=== PATIENT | male | born 1940 | race Caucasian/White ===

== ENCOUNTER 2019-08-26 07:30 | Day surgery (SDC) | payer MEDICARE, BC ==
[2019-08-26] VITALS (10 sets, daily range): BP systolic 116–130; BP diastolic 58–67
[~2019-08-26] VITALS: Ht 170.2 cm; Wt 73.8 kg
[~2019-08-26 07:30] MED LIST: ASPI81TA30 PO; EZET10TA6 PO; FENO145T38 PO; METO50TA17 PO; OMEP20CA4 PO; VITC500T PO
[2019-08-26] MEDS ORDERED: normal saline 1,000 ML IV SCH (07:55)
[2019-08-26] MEDS ORDERED: diphenhydrAMINE 25mg capsule PO PRN (07:55)
[2019-08-26 08:17] LABS: BASOPHILS % (AUTO) 0.5 % (0-1); EOSINOPHILS # (AUTO) 0.3 X10'3 (0-0.9); EOSINOPHILS % (AUTO) 4.2 % (0-6); HEMATOCRIT 39.7 % (42.0-52.0); LYMPHOCYTES # (AUTO) 1.2 X10'3 (1.1-4.8); LYMPHOCYTES % (AUTO) 16.3 % (21-51); MEAN CORPUSCULAR HEMOGLOBIN 29.5 PG (27.0-31.0); MEAN CORPUSCULAR HGB CONC 32.8 g/dL (33.0-36.5); MEAN CORPUSCULAR VOLUME 89.8 FL (78-98); MEAN PLATELET VOLUME 8.8 FL (7.4-10.4); MONOCYTES # (AUTO) 0.7 X10'3 (0-0.9); NEUTROPHILS # (AUTO) 5.1 X10'3 (1.8-7.7); PLATELET COUNT 324 X10'3 (140-440); RED BLOOD COUNT 4.43 X10'6 (4.70-6.10); RED CELL DISTRIBUTION WIDTH 14.8 % (11.5-14.5); WHITE BLOOD COUNT 7.3 X10'3 (4.5-11.0)
[2019-08-26 08:29] LABS: ALBUMIN 3.7 G/DL (3.4-5.0); ANION GAP 8 (8-16); BLOOD UREA NITROGEN 31 MG/DL (7-18); BUN/CREATININE RATIO 22.8 (5.4-32.0); CALCIUM 9.2 MG/DL (8.5-10.1); CHLORIDE 109 MMOL/L (99-107); CREATININE 1.36 MG/DL (0.60-1.10); GLUCOSE 90 MG/DL (70-104); MAGNESIUM 1.8 MG/DL (1.5-2.4); POTASSIUM 3.9 MMOL/L (3.5-5.1); SODIUM 143 MMOL/L (135-145); TOTAL CARBON DIOXIDE 26.3 MMOL/L (24-32); eGFR 50 ML/MIN
[2019-08-26] MEDS ORDERED: METO-467 PO (09:07)
[2019-08-26] MEDS ORDERED: LIDOcaine 1% (10mg/ml)w/preservative injection 20ml MDV ONE (09:08)
[2019-08-26] MEDS ORDERED: heparin 1,000unit/ml 10ml vial 10 ML ONE (09:08)
[2019-08-26] MEDS ORDERED: midazolam 2 mg/2 ml injection ONE ×2 (09:08→09:30)
[2019-08-26] MEDS ORDERED: fentaNYL/PF 50MCG/1 ML 2ML syringe ONE (09:08)
[2019-08-26] MEDS ORDERED: iohexol 350 MG/ML 50ML vial IV ONE (09:09)
[2019-08-26] MEDS ORDERED: iohexol 350MG/ML 100ml bottle IV ONE (09:09)
[2019-08-26] MEDS ORDERED: AMLO2.5T2 PO (09:17)
[2019-08-26] MEDS ORDERED: UBID50TA3 PO (09:17)
[2019-08-26] MEDS ORDERED: ATOR20TA PO (09:17)
[2019-08-26] MEDS ORDERED: EYE INJECTIONS EACHEYE (09:17)
[2019-08-26] MEDS ORDERED: MULT-1085 PO (09:17)
[2019-08-26] MEDS ORDERED: GLUC-131 PO (09:17)
[2019-08-26] MEDS ORDERED: OMEP-50 PO (09:17)
[2019-08-26] MEDS ORDERED: OMEG1CAP46 PO (09:17)
[2019-08-26] MEDS ORDERED: HYDROcodone/acetaminophen 10/325mg tab PO PRN (10:40)
[2019-08-26] MEDS ORDERED: OXAZEpam 15mg capsule PO PRN (10:40)
[2019-08-26] MEDS ORDERED: proCHLORperazine 10 MG/2 ml inj IV PRN (10:40)
[2019-08-26] MEDS ORDERED: HYDROcodone/acetaminophen 5mg/325mg tablet PO PRN (10:40)
[2019-08-26] MEDS ORDERED: acetaminophen 325mg tablet PO PRN (10:40)
[2019-08-26] MEDS ORDERED: ondansetron/PF 4mg/2ml inj IV PRN (10:40)
== END 2019-08-26 13:30 | disposition home or self-care (01) ==
LOC: MED 3N 07:30 → U 07:30
PROVIDERS: ATTEND Internal Medicine Cardiovascular Disease
DX: I25.10 Atherosclerotic heart disease of native coronary artery without angina pectoris (principal); I35.0 Nonrheumatic aortic (valve) stenosis; I27.20 Pulmonary hypertension, unspecified; Z87.891 Personal history of nicotine dependence
CPT/HCPCS: 36415; 80048; 83735; 85025; 85610; 93005; 93460; 99152; 99153; C1760; C1769; C1894; J1644; J2001; J2250; J3010; J7030; Q0163; Q9967; A4620; A6258

== ENCOUNTER 2020-08-27 09:23 | Day surgery (SDC) | payer MEDICARE, BC ==
[2020-08-27] VITALS (9 sets, daily range): BP systolic 144–165; BP diastolic 44–93
[~2020-08-27] VITALS: Ht 170.2 cm; Wt 78.4 kg
[~2020-08-27 09:23] MED LIST changes: +AMLO2.5T2 PO; +ATOR20TA PO; +EYE INJECTIONS EACHEYE; +GLUC-131 PO; +METO-467 PO; -METO50TA17 PO; +MULT-1085 PO; +OMEG1CAP46 PO; +OMEP-50 PO; -OMEP20CA4 PO; +UBID50TA3 PO
[2020-08-27] MEDS ORDERED: normal saline 1,000 ML IV SCH (09:50)
[2020-08-27] MEDS ORDERED: diphenhydrAMINE 25mg capsule PO PRN (09:50)
[2020-08-27 10:19] LABS: BASOPHILS % (AUTO) 0.3 % (0-1); EOSINOPHILS # (AUTO) 0.2 X10'3 (0-0.9); HEMATOCRIT 42.6 % (42.0-52.0); HEMOGLOBIN 14.2 g/dl (14.0-17.9); LYMPHOCYTES # (AUTO) 1.5 X10'3 (1.1-4.8); MEAN CORPUSCULAR HEMOGLOBIN 29.9 PG (27.0-31.0); MEAN CORPUSCULAR HGB CONC 33.4 g/dL (33.0-36.5); MEAN CORPUSCULAR VOLUME 89.4 FL (78-98); MEAN PLATELET VOLUME 8.6 FL (7.4-10.4); MONOCYTES # (AUTO) 0.7 X10'3 (0-0.9); MONOCYTES % (AUTO) 9.8 % (2-12); NEUTROPHILS # (AUTO) 4.6 X10'3 (1.8-7.7); NEUTROPHILS % (AUTO) 65.9 % (42-75); PLATELET COUNT 384 X10'3 (140-440); RED BLOOD COUNT 4.77 X10'6 (4.70-6.10); WHITE BLOOD COUNT 6.9 X10'3 (4.5-11.0)
[2020-08-27 10:27] LABS: ALBUMIN 3.6 G/DL (3.4-5.0); ANION GAP 13 (8-16); BLOOD UREA NITROGEN 24 MG/DL (7-18); CALCIUM 9.4 MG/DL (8.5-10.1); CHLORIDE 108 MMOL/L (99-107); CREATININE 1.33 MG/DL (0.60-1.10); GLUCOSE 89 MG/DL (70-104); MAGNESIUM 1.9 MG/DL (1.5-2.4); POTASSIUM 3.9 MMOL/L (3.5-5.1); SODIUM 146 MMOL/L (135-145); TOTAL CARBON DIOXIDE 25.4 MMOL/L (24-32); eGFR 52 ML/MIN
[2020-08-27] MEDS ORDERED: NITR0.4T51 SL (10:46)
[2020-08-27] MEDS ORDERED: APIX2.5T PO (10:46)
[2020-08-27] MEDS ORDERED: ZINC50TA67 PO (10:46)
[2020-08-27] MEDS ORDERED: ACET-890 PO (10:46)
[2020-08-27] MEDS ORDERED: midazolam 1 mg/ML 2ml injection ONE (10:52)
[2020-08-27] MEDS ORDERED: fentaNYL/PF 50MCG/1 ML 2ML syringe ONE (10:52)
[2020-08-27] MEDS ORDERED: heparin 1,000unit/ml 10ml vial 10 ML ONE (10:53)
[2020-08-27] MEDS ORDERED: LIDOcaine 1% (10mg/ml)w/preservative injection 20ml MDV ONE (10:53)
[2020-08-27] MEDS ORDERED: iohexol 350 MG/ML 50ML vial IV ONE (10:53)
[2020-08-27] MEDS ORDERED: iohexol 350MG/ML 100ml bottle IV ONE ×2 (10:53→12:24)
[2020-08-27] MEDS ORDERED: OXAZEpam 15mg capsule PO PRN (13:20)
[2020-08-27] MEDS ORDERED: ondansetron/PF 4mg/2ml inj IV PRN (13:20)
[2020-08-27] MEDS ORDERED: HYDROcodone/acetaminophen 10/325mg tab PO PRN (13:20)
[2020-08-27] MEDS ORDERED: proCHLORperazine 10 MG/2 ml inj IV PRN (13:20)
[2020-08-27] MEDS ORDERED: HYDROcodone/acetaminophen 5mg/325mg tablet PO PRN (13:20)
== END 2020-08-27 16:50 | disposition home or self-care (01) ==
LOC: SSTAY O 09:23
PROVIDERS: ATTEND Internal Medicine Cardiovascular Disease
DX: R94.39 Abnormal result of other cardiovascular function study (principal); I25.119 Atherosclerotic heart disease of native coronary artery with unspecified angina pectoris; I10 Essential (primary) hypertension; D64.9 Anemia, unspecified; I48.92 Unspecified atrial flutter; E78.5 Hyperlipidemia, unspecified; I25.2 Old myocardial infarction; K21.9 Gastro-esophageal reflux disease without esophagitis; Z86.73 Personal history of transient ischemic attack (TIA), and cerebral infarction without residual deficits; Z87.01 Personal history of pneumonia (recurrent); Z96.651 Presence of right artificial knee joint; Z96.642 Presence of left artificial hip joint; Z98.41 Cataract extraction status, right eye; Z98.890 Other specified postprocedural states; Z79.82 Long term (current) use of aspirin; Z79.899 Other long term (current) drug therapy; Z82.3 Family history of stroke
CPT/HCPCS: 36415; 80048; 83735; 85025; 85610; 93005; 93458; 99152; 99153; C1751; C1760; C1894; J1644; J2001; J2250; J3010; J7030; Q0163; Q9967; A4620; A6258

== ENCOUNTER 2020-09-03 08:34 | Day surgery (SDC) | payer MEDICARE, BC ==
[2020-09-03] VITALS (8 sets, daily range): BP systolic 130–156; BP diastolic 68–78
[~2020-09-03] VITALS: Ht 170.2 cm; Wt 78.1 kg
[~2020-09-03 08:34] MED LIST changes: +ACET-890 PO; +APIX2.5T PO; -ASPI81TA30 PO; -GLUC-131 PO; +NITR0.4T51 SL; +ZINC50TA67 PO
[2020-09-03] MEDS ORDERED: diphenhydrAMINE 25mg capsule PO PRN (09:05)
[2020-09-03] MEDS ORDERED: NARA2.5T2 (09:19)
[2020-09-03 09:33] LABS: BASOPHILS % (AUTO) 0.3 % (0-1); EOSINOPHILS # (AUTO) 0.2 X10'3 (0-0.9); EOSINOPHILS % (AUTO) 3.5 % (0-6); HEMATOCRIT 42.3 % (42.0-52.0); HEMOGLOBIN 14.1 g/dl (14.0-17.9); LYMPHOCYTES # (AUTO) 1.5 X10'3 (1.1-4.8); MEAN CORPUSCULAR HGB CONC 33.3 g/dL (33.0-36.5); MEAN CORPUSCULAR VOLUME 89.9 FL (78-98); MEAN PLATELET VOLUME 8.5 FL (7.4-10.4); MONOCYTES # (AUTO) 0.6 X10'3 (0-0.9); MONOCYTES % (AUTO) 9.1 % (2-12); NEUTROPHILS # (AUTO) 4.1 X10'3 (1.8-7.7); NEUTROPHILS % (AUTO) 64.1 % (42-75); PLATELET COUNT 431 X10'3 (140-440); RED BLOOD COUNT 4.71 X10'6 (4.70-6.10); RED CELL DISTRIBUTION WIDTH 14.6 % (11.5-14.5); WHITE BLOOD COUNT 6.3 X10'3 (4.5-11.0)
[2020-09-03] MEDS: normal saline 1,000 ML IV SCH ×2 (09:55→14:15)
[2020-09-03 10:00] LABS: ALBUMIN 3.4 G/DL (3.4-5.0); ANION GAP 10 (8-16); BLOOD UREA NITROGEN 31 MG/DL (7-18); BUN/CREATININE RATIO 20.9 (5.4-32.0); CALCIUM 9.2 MG/DL (8.5-10.1); CHLORIDE 107 MMOL/L (99-107); CREATININE 1.48 MG/DL (0.60-1.10); GLUCOSE 92 MG/DL (70-104); MAGNESIUM 1.9 MG/DL (1.5-2.4); POTASSIUM 3.8 MMOL/L (3.5-5.1); SODIUM 142 MMOL/L (135-145); TOTAL CARBON DIOXIDE 25.3 MMOL/L (24-32); eGFR 46 ML/MIN
[2020-09-03] MEDS ORDERED: LIDOcaine 1% (10mg/ml)w/preservative injection 20ml MDV ONE (10:12)
[2020-09-03] MEDS ORDERED: midazolam 1 mg/ML 2ml injection ONE ×2 (10:12→10:41)
[2020-09-03] MEDS ORDERED: fentaNYL/PF 50MCG/1 ML 2ML syringe ONE ×2 (10:12→12:08)
[2020-09-03] MEDS ORDERED: heparin 1,000unit/ml 10ml vial 10 ML ONE ×2 (10:12→11:26)
[2020-09-03] MEDS ORDERED: iohexol 350 MG/1 ML 200ml bottle ONE (10:13)
[2020-09-03] MEDS ORDERED: proCHLORperazine 10 MG/2 ml inj ONE (10:41)
[2020-09-03] MEDS ORDERED: nitroGLYCERIN-Tridil 50MG/D5W 250 ML IV ONE (11:34)
[2020-09-03] MEDS ORDERED: iohexol 350MG/ML 100ml bottle IV ONE (11:57)
[2020-09-03] MEDS ORDERED: adenosine 90 MG/30ml kit =/or below 120kg Cath Lab IV ONE (11:59)
--- NOTE | 2020-09-03 12:16 | NUR ---
Patient in room 1328A. I have received report from Thalia SHARMA, and had the opportunity to ask questions and assume patient care.
[2020-09-03] MEDS ORDERED: ticagrelor 90mg tablet ONE (12:23)
--- NOTE | 2020-09-03 12:55 | NUR ---
Pt in bed, vs stable as charted. Pt sat up to a 40 degree angle in bed. Drainage appeared on rt groin dressing. Pressure was held fo 10 min and area of drainage was marked on dressing. No swelling, no s/s of bleeding at this time. Will continue to monitor.
[2020-09-03] MEDS ORDERED: ondansetron/PF 4mg/2ml inj IV PRN (13:20)
[2020-09-03] MEDS ORDERED: HYDROcodone/acetaminophen 5mg/325mg tablet PO PRN (13:20)
[2020-09-03] MEDS ORDERED: proCHLORperazine 10 MG/2 ml inj IV PRN (13:20)
[2020-09-03] MEDS ORDERED: HYDROcodone/acetaminophen 10/325mg tab PO PRN (13:20)
[2020-09-03] MEDS ORDERED: acetaminophen 325mg tablet PO PRN (13:20)
--- NOTE | 2020-09-03 13:20 | NUR ---
Drainage area has moved minimally across the boarder drawn on the dressing. Pt groin site, soft, no s/s of bleeding or infection. pt is resting in supine position. is at bedside. Will continue to monitor.
--- NOTE | 2020-09-03 14:07 | NUR ---
Problems reprioritized. Patient report given, questions answered & plan of care reviewed with Dhara SHARMA.
== END 2020-09-03 16:03 | disposition home or self-care (01) ==
LOC: SSTAY O 08:34
PROVIDERS: ATTEND Internal Medicine Cardiovascular Disease
DX: R07.89 Other chest pain (principal); I25.119 Atherosclerotic heart disease of native coronary artery with unspecified angina pectoris; I10 Essential (primary) hypertension; E78.5 Hyperlipidemia, unspecified; D64.9 Anemia, unspecified; I25.2 Old myocardial infarction; Z79.899 Other long term (current) drug therapy; Z87.891 Personal history of nicotine dependence; Z79.01 Long term (current) use of anticoagulants
CPT/HCPCS: 36415; 80048; 83735; 85025; 85610; 92978; 93571; 99152; 99153; C1725; C1751; C1753; C1760; C1769; C1874; C1892; C1894; C9600; C9601; J0153; J0780; J1644; J2001; J2250; J3010; J7030; Q0163; Q9967; A4620; A6258; J3490

== ENCOUNTER 2020-09-03 17:25 | Emergency (ER) | payer MEDICARE, BC ==
[~2020-09-03] VITALS: Ht 170.2 cm; Wt 77.3 kg
[~2020-09-03 17:25] MED LIST changes: +NARA2.5T2
[2020-09-03 17:56] LABS: BASOPHILS # (AUTO) 0.1 X10'3 (0-0.2); BASOPHILS % (AUTO) 0.6 % (0-1); EOSINOPHILS # (AUTO) 0.3 X10'3 (0-0.9); EOSINOPHILS % (AUTO) 2.8 % (0-6); HEMATOCRIT 44.1 % (42.0-52.0); HEMOGLOBIN 14.9 g/dl (14.0-17.9); LYMPHOCYTES # (AUTO) 2.5 X10'3 (1.1-4.8); LYMPHOCYTES % (AUTO) 26.6 % (21-51); MEAN CORPUSCULAR HEMOGLOBIN 30.4 PG (27.0-31.0); MEAN CORPUSCULAR HGB CONC 33.9 g/dL (33.0-36.5); MEAN CORPUSCULAR VOLUME 89.7 FL (78-98); MEAN PLATELET VOLUME 8.2 FL (7.4-10.4); MONOCYTES # (AUTO) 0.8 X10'3 (0-0.9); MONOCYTES % (AUTO) 8.8 % (2-12); NEUTROPHILS # (AUTO) 5.8 X10'3 (1.8-7.7); NEUTROPHILS % (AUTO) 61.2 % (42-75); PLATELET COUNT 458 X10'3 (140-440); RED BLOOD COUNT 4.92 X10'6 (4.70-6.10); RED CELL DISTRIBUTION WIDTH 14.7 % (11.5-14.5); WHITE BLOOD COUNT 9.5 X10'3 (4.5-11.0)
[2020-09-03 18:15] LABS: ALANINE AMINOTRANSFERASE 43 U/L (12-78); ALBUMIN 3.7 G/DL (3.4-5.0); ALBUMIN/GLOBULIN RATIO 0.9 (1.1-1.5); ALKALINE PHOSPHATASE 61 IU/L (46-116); ANION GAP 13 (8-16); ASPARTATE AMINO TRANSFERASE 40 U/L (10-37); BILIRUBIN,TOTAL 0.6 MG/DL (0.1-1.0); BLOOD UREA NITROGEN 27 MG/DL (7-18); BUN/CREATININE RATIO 18.1 (5.4-32.0); CALCIUM 9.2 MG/DL (8.5-10.1); CHLORIDE 104 MMOL/L (99-107); CREATININE 1.49 MG/DL (0.60-1.10); GLUCOSE 91 MG/DL (70-104); POTASSIUM 3.1 MMOL/L (3.5-5.1); SODIUM 140 MMOL/L (135-145); TOTAL CARBON DIOXIDE 22.9 MMOL/L (24-32); TOTAL PROTEIN 7.6 G/DL (6.4-8.2); eGFR 45 ML/MIN
[2020-09-03] MEDS ORDERED: potassium Cl 20 mEq SR tablet PO STA (18:36)
[2020-09-03] MEDS ORDERED: furosemide 10 MG/1 ML 10ml inj IV ONE (18:40)
--- NOTE | 2020-09-03 19:25 | NUR ---
Commission Specialist Pick at bedside given d/c instructions.
--- NOTE | 2020-09-03 19:32 | NUR ---
Gait test currently being assessed.
[2020-09-03 19:48] VITALS: BP 167/86
== END 2020-09-03 19:46 | disposition home or self-care (01) ==
LOC: ER 17:26
DX: R06.02 Shortness of breath (principal); I25.10 Atherosclerotic heart disease of native coronary artery without angina pectoris; I10 Essential (primary) hypertension; Z98.890 Other specified postprocedural states; Z79.899 Other long term (current) drug therapy
CPT/HCPCS: 36415; 71045; 80053; 83880; 84484; 85025; 93005; 93308; 96374; 99285; J1940